=== PATIENT | male | born 1960 | race Caucasian/White ===

== ENCOUNTER 2019-02-06 06:57 | Emergency (ER) | payer MEDICAID ==
--- NOTE | 2019-02-06 08:07 | EDM.PDOC ---
ED HPI GENERAL MEDICAL PROBLEM - General Chief Complaint: Lower Extremity Injury/Pain Stated Complaint: LEFT KNEE Time Seen by Provider: 02/06/19 08:02 - History of Present Illness INITIAL COMMENTS - FREE TEXT/NARRATIVE: c/o L knee pain pain in L knee x several wks, inc'd in pat 2d, no trauma, pain more medially, has had knee pain in the past states "all my joints have hurt" from both gout and RA which were dx in 2002 had lived in [facility], saw forest resource specialist there and tx'ed with Embro and MTX and "3-4 others" which he said had helped last his insurance moved locally 1y ago, just got Medicaid insurance, has 1st apt with rheum in [place] on Apr 24 applying for disability has seen PCP only med is prednisone 5 mg daily 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 d/t gout has been on allopurinol in the past, pt thought it was used for his RA L knee Pain Score (Numeric/FACES): 6 - Related Data Allergies Allergy/AdvReac Type Severity Reaction Status Date / Time No Known Allergies Allergy Verified 02/06/19 07:29 Home Meds: Home Meds Allopurinol [Zyloprim] 300 mg PO DAILY #30 tablet 02/06/19 [Rx] Colchicine 0.6 mg PO BID #14 tablet 02/06/19 [Rx] Meloxicam 15 mg PO DAILY #30 tablet 02/06/19 [Rx] predniSONE 20 mg PO DAILY #9 tab 02/06/19 [Rx] predniSONE [Prednisone] 5 mg PO DAILY 02/06/19 [History] Past Medical History Musculoskeletal History: Reports: Amputation, Fracture, Gout, RA Other Musculoskeletal History: R 5th toe amputation, R hand Endocrine/Metabolic History: Reports: Obesity/BMI 30+ - Infectious Disease History Infectious Disease History: Reports: Chicken Pox, Measles, Mumps - Past Surgical History HEENT Surgical History: Reports: Eye Surgery Other HEENT Surgeries/Procedures: wandering L eye surgery GI Surgical History: Reports: Colonoscopy Musculoskeletal Surgical History: Reports: Amputation Social & Family History - Family History Family Medical History: Noncontributory - Tobacco Use Smoking Status *Q: Current Every Day Smoker Years of Tobacco use: 48 Packs/Tins Daily: 1 - Caffeine Use Caffeine Use: Reports: Coffee, Soda, Tea - Alcohol Use Days Per Week of Alcohol Use: 1 Number of Drinks Per Day: 2 Total Drinks Per Week: 2 - Recreational Drug Use Recreational Drug Use: No Review of Systems - Review of Systems Review Of Systems: See Below Constitutional: Reports: No Symptoms Eyes: Reports: No Symptoms Ears: Reports: No Symptoms Nose: Reports: No Symptoms Mouth/Throat: Reports: No Symptoms Respiratory: Reports: No Symptoms Cardiovascular: Reports: No Symptoms GI/Abdominal: Reports: No Symptoms Genitourinary: Reports: No Symptoms Musculoskeletal: Reports: Joint Pain Skin: Reports: No Symptoms Neurological: Reports: No Symptoms Psychiatric: Reports: No Symptoms ED EXAM, GENERAL - Physical Exam Exam: See Below Exam Limited By: No Limitations General Appearance: Alert, WD/WN Head: Atraumatic Neck: Normal Inspection, Supple Respiratory/Chest: No Respiratory Distress Cardiovascular: Regular Rate, Rhythm Extremities: Other (hands with marked ulnar deviation b/l and multiple gout ( mobile) tophi, R 2nd toe missing with hallux valgus and 4 mm tophi on medial aspect of 1st MTP, L knee with MCL/LCL NT, joint line NT, possible mild effusion , slight warmth anteriorly b/l over the joint line) Course - Vital Signs Last Recorded V/S: Last Vital Signs Temp 36.3 C 02/06/19 06:57 Pulse 100 02/06/19 06:57 Resp 18 02/06/19 06:57 BP 132/97 H 02/06/19 06:57 Pulse Ox 96 02/06/19 06:57 - Orders/Labs/Meds Orders: Active Orders 24 hr Category Date Time Status Knee 3V Lt [CR] Stat Exams 02/06/19 08:00 Ordered Labs: Laboratory Tests 02/06/19 02/06/19 02/06/19 Range/Units 08:15 08:15 08:15 WBC 9.3 (4.5-12.0) X10-3/uL RBC 4.66 (4.30-5.75) x10(6)uL Hgb 16.4 (13.5-17.8) g/dL Hct 47.6 (30.0-51.3) % MCV 102.2 H (80-96) fL MCH 35.1 H (27.7-33.6) pg MCHC 34.4 (32.2-35.4) g/dL RDW 16.1 H (11.5-15.5) % Plt Count 186 (125-369) X10(3)uL MPV 8.8 (7.4-10.4) fL Neut % (Auto) 75.0 (46-82) % Lymph % (Auto) 15.3 (13-37) % Tripp % (Auto) 7.3 (4-12) % Eos % (Auto) 1 (1.0-5.0) % Baso % (Auto) 2 (0-2) % Neut # (Auto) 6.9 (1.6-8.3) # Lymph # (Auto) 1.4 (0.6-5.0) # Tripp # (Auto) 0.7 (0.0-1.3) # Eos # (Auto) 0.1 (0.0-0.8) # Baso # (Auto) 0.2 (0.0-0.2) # Sodium 140 (135-145) mmol/L Potassium 3.8 (3.5-5.3) mmol/L Chloride 104 (100-110) mmol/L Carbon Dioxide 27 (21-32) mmol/L BUN 11 (7-18) mg/dL Creatinine 0.7 (0.70-1.30) mg/dL Est Cr Clr Drug Dosing 115.87 mL/min Estimated GFR (MDRD) > 60 (>60) BUN/Creatinine Ratio 15.7 (9-20) Glucose 94 (80-116) mg/dL Uric Acid 6.6 H (2.6-6.0) mg/dL Calcium 8.4 L (8.6-10.2) mg/dL Total Bilirubin 0.5 (0.1-1.3) mg/dL AST 17 (5-25) IU/L ALT 20 (12-36) U/L Alkaline Phosphatase 90 (56-112) IU/L C-Reactive Protein (0.5-0.9) mg/dL Total Protein 6.7 (6.0-8.0) g/dL Albumin 3.1 L (3.2-4.6) g/dL Globulin 3.6 g/dL Albumin/Globulin Ratio 0.9 09/26/19 Range/Units 08:15 WBC (4.5-12.0) X10-3/uL RBC (4.30-5.75) x10(6)uL Hgb (13.5-17.8) g/dL Hct (30.0-51.3) % MCV (80-96) fL MCH (27.7-33.6) pg MCHC (32.2-35.4) g/dL RDW (11.5-15.5) % Plt Count (125-369) X10(3)uL MPV (7.4-10.4) fL Neut % (Auto) (46-82) % Lymph % (Auto) (13-37) % Tripp % (Auto) (4-12) % Eos % (Auto) (1.0-5.0) % Baso % (Auto) (0-2) % Neut # (Auto) (1.6-8.3) # Lymph # (Auto) (0.6-5.0) # Tripp # (Auto) (0.0-1.3) # Eos # (Auto) (0.0-0.8) # Baso # (Auto) (0.0-0.2) # Sodium (135-145) mmol/L Potassium (3.5-5.3) mmol/L Chloride (100-110) mmol/L Carbon Dioxide (21-32) mmol/L BUN (7-18) mg/dL Creatinine (0.70-1.30) mg/dL Est Cr Clr Drug Dosing mL/min Estimated GFR (MDRD) (>60) BUN/Creatinine Ratio (9-20) Glucose (80-116) mg/dL Uric Acid (2.6-6.0) mg/dL Calcium (8.6-10.2) mg/dL Total Bilirubin (0.1-1.3) mg/dL AST (5-25) IU/L ALT (12-36) U/L Alkaline Phosphatase (56-112) IU/L C-Reactive Protein 1.2 H (0.5-0.9) mg/dL Total Protein (6.0-8.0) g/dL Albumin (3.2-4.6) g/dL Globulin g/dL Albumin/Globulin Ratio Meds: Medications Discontinued Medications Generic Name Dose Route Start Last Admin Trade Name Freq PRN Reason Stop Dose Admin Ketorolac Tromethamine 60 mg 02/06/19 08:43 02/06/19 08:50 Toradol IM 02/06/19 08:44 60 mg ONETIME ONE Administration - Re-Assessments/Exams Free Text/Narrative Re-Assessment/Exam: 02/06/19 09:06 uric acid 6.6, target is less than 5, will start allopurinol XR knee shows mild DJD CRP 1.2 suspect pain is gout rather than RA and DJD Departure - Departure Time of Disposition: 09:07 Disposition: Home, Self-Care 01 Condition: Good Clinical Impression: Acute gout of left knee - Discharge Information *PRESCRIPTION DRUG MONITORING PROGRAM REVIEWED*: Not Applicable *COPY OF PRESCRIPTION DRUG MONITORING REPORT IN PATIENT DEVENDRA: Not Applicable Prescriptions: Allopurinol [Zyloprim] 300 mg PO DAILY #30 tablet Colchicine 0.6 mg PO BID #14 tablet Meloxicam 15 mg PO DAILY #30 tablet predniSONE 20 mg PO DAILY #9 tab Instructions: Gout Referrals: PCP,None [Primary Care Provider] - Forms: ED Department Discharge Additional Instructions: The pain in your left knee is most likely due to the gout. Continue ice for 10 minutes every 2 hours as needed. Use John wrap for the next several days. For gout, take colchicine 0.6 mg 1 tab 2 times a day for 7 days. For gout (in order to lower the uric acid level), in one week begin taking allopurinol 300 mg 1 tab daily. For inflammation, take meloxicam 15 mg 1 tab daily for 2 weeks, longer if needed. For inflammation, take acetaminophen 500 mg 2 tabs 3 times a day for 2 weeks, longer if needed. For inflammation, increase the prednisone 20 mg to 2 tabs daily for 2 days, then 1 tab daily for 5 days. Then resume the prednisone 5 mg daily. See your doctor in 3 weeks to recheck your blood for the uric acid level and c- reactive protein. See your doctor earlier if you are not feeling much better in 2-3 days. - My Orders Last 24 Hours: My Active Orders 02/06/19 08:00 Knee 3V Lt [CR] Stat - Assessment/Plan Last 24 Hours: My Active Orders 02/06/19 08:00 Knee 3V Lt [CR] Stat
[2019-02-06] MEDS ORDERED: Ketorolac 60 MG/2 ML SDV IM ONE (08:43)
== END 2019-02-06 09:44 | disposition home or self-care (01) ==
LOC: FB.ED 06:57
DX: M10.9 Gout, unspecified (principal); E66.9 Obesity, unspecified; M06.9 Rheumatoid arthritis, unspecified; F17.210 Nicotine dependence, cigarettes, uncomplicated; Z79.899 Other long term (current) drug therapy
CPT/HCPCS: 36415; 73562; 80053; 84550; 85025; 86140; 96372; 99284; J1885

== ENCOUNTER 2020-02-16 07:15 | Day surgery (SDC) | payer MEDICAID ==
[~2020-02-16 07:15] MED LIST: Lactated Ringers 1,000 ML IV SCH; Sodium Chloride 0.9% 10 ML Syringe FLUSH PRN
[2020-02-16] MEDS ORDERED: Midazolam 1 MG/ML 2 ML SDV IV ONE (07:16)
[2020-02-16] MEDS ORDERED: Dexmedetomidine 200 MCG/2 ML SDV IV ONE (07:16)
[2020-02-16] MEDS ORDERED: Propofol 200 MG/20 ML SDV IV ONE (07:16)
[2020-02-16] MEDS ORDERED: Ketamine 500 mg/10 ML MDV IV ONE (07:16)
[2020-02-16] MEDS ORDERED: Albuterol 8 GM Inhaler INH ONE (07:16)
[2020-02-16] MEDS ORDERED: fentaNYL 100 MCG/2 ML SDV IV ONE (07:16)
[2020-02-16] MEDS ORDERED: cefOXitin 2 GM Vial IVPUSH ONE (07:50)
[2020-02-16] MEDS ORDERED: Bupivacaine 0.5% 30 ML SDV INJECT ONE (08:38)
[2020-02-16] MEDS ORDERED: Lidocaine 1% with EPINEPHrine 1:100,000 20 ML MDV INJECT ONE (08:38)
--- NOTE | 2020-02-16 09:02 | PCM.OPNOTE ---
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
[2020-02-16] MEDS ORDERED: Acetaminophen/HYDROcodone 325-5 MG Tab PO PRN (09:05)
--- NOTE | 2020-02-16 15:50 | OR ---
DATE OF OPERATION: 02/16/2020 SURGEON: Chandu Padron MD PROCEDURE PERFORMED: Amputation of the metatarsal head of the right 4th digit. 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 POSTOPERATIVE DIAGNOSIS: Osteomyelitis and history of dry gangrene of the right 4th toe. INDICATIONS FOR PROCEDURE: This is a 59-year-old white male who was referred to [facility] with dry gangrene involving the right 4th toe. As the toe itself was hanging on literally by several fibrous bands, it was amputated in the clinic under local anesthetic. He had an exposed metatarsal head that would require amputation to allow coverage of the bone and allow continued healing. He presents now to have this procedure performed. DESCRIPTION OF PROCEDURE: After an adequate IV sedation was administered via Anesthesia, 7 mL of a 1:1 mixture of 1% lidocaine was used to infiltrate the area around the metatarsal. This was done after the leg was prepped and draped in the usual sterile manner. We trimmed back one area of necrotic tissue back to good healthy tissue. Using a periosteal elevator, the tissue was gently dissected free from the surrounding shaft of the metatarsal. A bone clipper was then used to transect the metatarsal midshaft. The specimen was passed off the field. Sharp points were debrided with a combination of rongeur and filing. After demonstrating adequate coverage of the bone, interrupted 3-0 nylon was used to loosely approximate the skin tissue covering the bone itself. A dressing was then applied. The patient was taken to recovery room in good condition, having tolerated the procedure well. /[id number] /MODL
== END 2020-02-16 10:25 | disposition home or self-care (01) ==
LOC: FB.SDS 07:15
PROVIDERS: ATTEND Surgery
DX: M86.171 Other acute osteomyelitis, right ankle and foot (principal); E66.9 Obesity, unspecified; Z68.38 Body mass index [BMI] 38.0-38.9, adult; Z79.899 Other long term (current) drug therapy
CPT/HCPCS: 01480; 28810; 88307; 88311; A9270; J0694; J2250; J2704; J3010; J3490; J7120